=== PATIENT | male | born 1970 | race Two or more races ===

== ENCOUNTER 2021-09-24 16:06 | Emergency (ER) | payer OTHER ==
[~2021-09-24] VITALS: Ht 165.1 cm; Wt 72.6 kg
[2021-09-24] MEDS ORDERED: IOHEXOL 300 MG/ML 100ML BOTTLE IJ ONE (20:29)
[2021-09-24 22:13] LABS: Basophils # (auto) 0.2 10 ^3/uL (0-0.2); Basophils % (auto) 2.6 % (0.0-2.0); Eosinophils # (auto) 0.2 10 ^3/uL (0-0.8); Hematocrit 44.5 % (41.0-53.0); Hemoglobin 15.4 g/dL (13.5-17.5); Lymphocytes # (auto) 1.3 10 ^3/uL (0.4-5.4); Lymphocytes % (auto) 19.9 % (10.0-50.0); Mean Corpuscular Hemoglobin 29.1 pg (28.0-32.0); Mean Corpuscular Hgb Conc. 34.5 g/dL (32.0-36.0); Mean Corpuscular Volume 84.2 fL (80.0-100.0); Monocytes # (auto) 0.3 10 ^3/uL (0-1.3); Monocytes % (auto) 5.1 % (0.0-12.0); Neutrophils # (auto) 4.7 10 ^3/uL (1.6-8.6); Neutrophils % (auto) 69.4 % (37.0-80.0); Nucleated Red Blood Cells % 0.1 %; Red Blood Cells 5.28 10^6/uL (4.5-5.90); White Blood Cell 6.7 10^3/uL (4.4-10.8)
[2021-09-24 22:24] LABS: INR 2.93 (0.9-1.15); Partial Thromboplastin Time 47.7 sec (23.6-33.0)
[2021-09-24 23:14] LABS: Potassium 3.6 mmol/L (3.5-5.1)
[2021-09-24 23:15] LABS: Albumin 3.7 g/dL (3.4-5.0); BUN/Creatinine Ratio 12.5; Bilirubin, Total 0.4 mg/dL (0.2-1.0); Calcium 8.9 mg/dL (8.5-10.1)
[2021-09-25] MEDS ORDERED: HYDROmorphone HCL 2 MG/ML VL IV ONE ×2 (02:00→14:15)
[2021-09-25] MEDS ORDERED: GABAPENTIN 300 MG CAP PO ONE (08:30)
[2021-09-25] MEDS ORDERED: PANTOPRAZOLE 40 MG TAB PO ONE (08:30)
[2021-09-25 14:43] VITALS: BP 136/85
== END 2021-09-25 15:05 | disposition short-term general hospital (02) ==
LOC: ER 16:06 → EEVIPCON 16:06 → ER 09-25 15:05
DX: I74.3 Embolism and thrombosis of arteries of the lower extremities (principal); I10 Essential (primary) hypertension; Z20.822 Contact with and (suspected) exposure to COVID-19
CPT/HCPCS: 36415; 74177; 80053; 83690; 85025; 85379; 85610; 85730; 87426; 96374; 96376; 99285; J1170; Q9967

== ENCOUNTER 2021-11-28 17:33 | Emergency (ER) | payer OTHER ==
[~2021-11-28] VITALS: Ht 165.1 cm; Wt 63.5 kg
[2021-11-28 19:44] LABS: Basophils # (auto) 0.1 10 ^3/uL (0-0.2); Eosinophils # (auto) 0.4 10 ^3/uL (0-0.8); Hemoglobin 8.2 g/dL (13.5-17.5); Monocytes # (auto) 0.5 10 ^3/uL (0-1.3)
[2021-11-28] MEDS ORDERED: IOHEXOL 350 MG/ML 100ML IJ ONE (19:44)
[2021-11-28 19:46] LABS: Basophils % (auto) 0.5 % (0.0-2.0); Eosinophils % (auto) 3.7 % (0.0-7.0); Lymphocytes # (auto) 1.1 10 ^3/uL (0.4-5.4); Lymphocytes % (auto) 10.9 % (10.0-50.0); Mean Corpuscular Hemoglobin 24.5 pg (28.0-32.0); Mean Corpuscular Hgb Conc. 32.8 g/dL (32.0-36.0); Mean Corpuscular Volume 74.7 fL (80.0-100.0); Monocytes % (auto) 5.1 % (0.0-12.0); Neutrophils # (auto) 7.8 10 ^3/uL (1.6-8.6); Neutrophils % (auto) 79.8 % (37.0-80.0); Red Blood Cells 3.34 10^6/uL (4.5-5.90); Red Cell Distribution Width 18.3 % (11.8-14.3); White Blood Cell 9.8 10^3/uL (4.4-10.8)
[2021-11-28 20:04] LABS: Albumin 2.7 g/dL (3.4-5.0); Calcium 8.6 mg/dL (8.5-10.1); Potassium 4.2 mmol/L (3.5-5.1)
[2021-11-28 20:08] LABS: BUN/Creatinine Ratio 8.2; Bilirubin, Total 0.3 mg/dL (0.2-1.0); Total Protein 7.2 g/dL (6.4-8.2)
[2021-11-29] MEDS ORDERED: MORPHINE SULFATE 4 MG/ML SYR/VIAL IV ONE (00:30)
[2021-11-29 04:50] VITALS: BP 98/60
== END 2021-11-29 05:06 | disposition short-term general hospital (02) ==
LOC: ER 17:33 → EEVIPCON 17:33 → ER 11-29 05:06
DX: I74.09 Other arterial embolism and thrombosis of abdominal aorta (principal); I10 Essential (primary) hypertension; Z20.822 Contact with and (suspected) exposure to COVID-19
CPT/HCPCS: 36415; 71045; 75635; 80053; 83605; 85025; 87040; 87426; 93005; 96374; 99285; J2270; Q9967